=== PATIENT | male | born 1970 | race Caucasian/White ===

== ENCOUNTER 2018-10-16 22:37 | Emergency (ER) | payer OTHER, SELFPAY ==
[2018-10-16 22:42] VITALS: BP 135/92; PULSE 81; RESP 20; TEMP 36.9; O2SAT 98
[2018-10-16] MEDS: CLINDAMYCIN 150 MG CAPSULE 300 MG PO (23:23)
[2018-10-16] MEDS: DEXAMETHASONE 10 MG/ML VIAL PO (23:23)
[2018-10-16] MEDS: KETOROLAC 60 MG/2 ML VIAL IM (23:23)
[2018-10-16 23:56] VITALS: PULSE 87; RESP 18; O2SAT 96
--- NOTE | 2018-10-17 04:52 | ED_ITS ---
HPI - Dental/Oral General Chief complaint: Dental/Oral Stated complaint: JAW PAIN Time Seen by Provider: 10/16/18 22:45 Source: patient and family Mode of arrival: ambulatory Limitations: no limitations History of Present Illness HPI Narrative: 48-year-old male nonsmoker with minimal medical problems presents with the chief complaint of some right-sided jaw pain and a swollen tender spot on the right side of his neck. He denies any injury nor fever or chills. He has a bad tooth in his right lower jaw but denies any drainage or swelling inside his mouth. He denies any chest pain or shortness of breath. He has had no fever or chills. He is not dizzy or weak or lightheaded. He denies any difficulty in swallowing. He denies any trouble breathing. He has had no drooling and is otherwise well and free of complaints MD Complaint: tooth pain 1. Onset (ago): hour(s) Duration: constant Relieving factors: nothing Exacerbating factors: nothing Context: history of dental caries Treatment prior to arrival: none Related Data Previous Rx's Medication Instructions Recorded oxycodone 5 mg PO Q4HP PRN #90 tab 11/25/16 clindamycin HCl 300 mg PO Q6H 7 Days #28 cap 10/16/18 Allergies Allergy/AdvReac Type Severity Reaction Status Date / Time No Known Drug Allergies Allergy Verified 10/16/18 22:43 Review of Systems Constitutional Denies chills, Denies fever(s), Denies lethargy and Denies weakness Eyes Denies change in vision, Denies eye discharge, Denies irritation and Denies loss of vision ENT Ears, Nose, Mouth, and Throat: Denies change in voice, Reports dental pain, Reports neck pain and Denies sore throat Cardiovascular Denies chest pain, Denies irregular heart rhythm, Denies lightheadedness, Denies palpitations, Denies dyspnea, Denies dyspnea on exertion and Denies orthopnea Respiratory Denies cough, Denies dyspnea, Denies dyspnea on exertion and Denies wheezing Gastrointestinal Gastrointestinal: Denies abdominal pain, Denies change in bowel habits, Denies diarrhea, Denies nausea and Denies vomiting Genitourinary Denies hematuria, Denies flank pain, Denies urinary incontinence and Denies urinary urgency Musculoskeletal Reports neck pain Integumentary/Breasts Denies pruritus, Denies erythema, Denies rash and Denies wounds Neurologic Denies confusion, Denies loss of vision and Denies weakness Psychiatric Denies anxiety, Denies confusion, Denies depression, Denies homicidal ideation and Denies suicidal ideation Endocrine Denies palpitations Hematologic/Lymphatic Denies easy bruising Allergic/Immunologic Denies wheezing PFSH Social History Smoking Status: Never smoker Social History Smoking Status: Never smoker Exam Narrative Exam Narrative: GENERAL: 48-year-old male appears stated age, no obvious distress HEAD: Atraumatic. Normocephalic. No temporal or scalp tenderness. EYES: Pupils equal round and reactive. Extraocular motions intact. No scleral icterus. No injection or drainage. ENT: Mild R lower jaw swelling, minimal tenderness. Nose without bleeding, purulent drainage or septal hematoma. Throat without erythema, tonsillar hypertrophy or exudate. Uvula midline. Airway patent. NECK: Trachea midline. No JVD or lymphadenopathy. Two small erythematous tender indurated lesions on R side of neck. Freely moveable, no significant swelling. No abscess. CARDIOVASCULAR: Regular rate and rhythm without murmurs, gallops, or rubs. RESPIRATORY: Clear to auscultation. Breath sounds equal bilaterally. No wheezes, rales, or rhonchi. GASTROINTESTINAL: Abdomen soft, non-tender, nondistended. No hepato- splenomegaly, or palpable masses. No guarding. EXTREMITIES: No clubbing, cyanosis, or edema. No joint tenderness, effusion, or edema noted. BACK: Nontender without deformity or crepitance. No flank tenderness. NEURO: AOx3. . Initial Vital Signs Initial Vital Signs: Vital Signs Temperature 98.5 F 10/16/18 22:42 Pulse Rate 81 10/16/18 22:42 Respiratory Rate 20 10/16/18 22:42 Blood Pressure 135/92 H 10/16/18 22:42 Pulse Oximetry 98 10/16/18 22:42 Course Orders Ordered: Discontinued Medications Clindamycin HCl (Cleocin) 300 mg PO NOW ONE Stop: 10/16/18 23:15 Last Admin: 10/16/18 23:23 Dose: 300 mg Dexamethasone (Decadron) 10 mg PO NOW ONE Stop: 10/16/18 23:15 Last Admin: 10/16/18 23:23 Dose: 10 mg Ketorolac Tromethamine (Toradol) 60 mg IM NOW ONE Stop: 10/16/18 23:15 Last Admin: 10/16/18 23:23 Dose: 60 mg Vital Signs - 8 hr 10/16/18 22:42 10/16/18 23:56 Temperature 98.5 F Pulse Rate 81 87 Respiratory Rate 20 18 Blood Pressure 135/92 H Pulse Oximetry 98 96 MDM - Dental/Oral MDM Narrative Medical decision making narrative: 48-year-old male otherwise healthy presents with some right-sided jaw tenderness, dental pain and the right lateral neck pain. There is very minimal swelling and minimal induration. Certainly no drainable abscess. Considerations include potential early dental abscess versus cellulitis. The more ominous diagnoses such is peritonsillar abscess, neck space infection considered but thought much less likely given lack of supporting the exam findings. Extensive return precautions given to patient and . Clindamycin chosen for appropriate coverage of both odontogenic and skin infections Discharge Plan Departure Patient Disposition: Home Clinical Impression: Cellulitis and abscess of face Discharge Date/Time: 10/16/18 23:57 Interventions: ED Discharge Assessment Last Done: 10/16/18 23:56 Instructions: DI for Cellulitis -- Adult Activity Restrictions/Additional Instructions: *You have been diagnosed with [ facial pain and swelling, likely due to early cellulitis or abscess, possibly dental ] *What to do: *Take medications as directed *Follow up with your primary care provider tomorrow as planned *Return to ER if you should have any new, worsening or concerning symptoms Prescriptions: New clindamycin HCl 300 mg capsule 300 mg PO Q6H 7 Days Qty: 28 RF: 0 No Action oxycodone 5 MG tablet 5 mg PO Q4HP PRNQty: 90 RF: 0
== END 2018-10-16 23:57 | disposition home or self-care (01) ==
PROVIDERS: Emergency Provider Emergency Medicine
DX: L03.211 Cellulitis of face (principal)
CPT/HCPCS: 96372; 99282; 99283; J1100; J1885

== ENCOUNTER → 2019-02-12 07:34 | Outpatient (CLI) | payer OTHER, SELFPAY ==
--- NOTE | 2019-02-12 | DI.MRI.S_ITS ---
PROCEDURE: MR TMJ WO CON INDICATIONS: JAW PAIN TECHNIQUE: Axial T1 spin echo, coronal and sagittal PD fast spin echo through the temporomandibular joints, in both the closed- and open-mouth positions. COMPARISON: None. FINDINGS: Image quality: Excellent. Right: Joint is normally aligned on closed and open-mouth positioning. Meniscus demonstrates normal location and morphology. No definite anterior displacement of the posterior band of the meniscus is seen with open-mouth pulse sequences . No bony erosions or osteophytes. Left: Joint is normally aligned on closed and open-mouth positioning. Meniscus demonstrates normal location and morphology. No definite anterior displacement of the posterior band of the meniscus is seen with open-mouth pulse sequences. No bony erosions or osteophytes. Incidentally noted bilateral maxillary sinus mucous retention cysts or polyps. IMPRESSION: Incidentally noted mild bilateral maxillary sinus disease, otherwise normal examination as above. Dictated by: Amauri Delong M.D. on 02/12/2019 at 11:25 Approved by: Amauri Delong M.D. on 02/12/2019 at 11:34
== END ==
PROVIDERS: Visit Provider Dentist Oral and Maxillofacial Surgery
DX: R68.84 Jaw pain (principal); J32.0 Chronic maxillary sinusitis
CPT/HCPCS: 70336

== ENCOUNTER → 2024-09-08 06:29 | Outpatient (CLI) | payer OTHER, SELFPAY ==
--- NOTE | 2024-09-08 06:32 | DI.ECHO.S_ITS ---
[facility] : : [address] : [place] : : [id number] : : Phone: [phone] Echocardiogram Report + + :Name: ASUNCION TRINH Study Date: 09/08/2024 Height: 70 in : :Hospital ReadingLocation: Weight: 245 lb : : Gender: Male BSA: 2.3 m2 : :: 1970 Age: 54 yrs BP: 143/101 mmHg: :Reason For Study: ISCHEMIC HEART DISEASE : :Ordering Physician: ALMA, : :LADARIUS Performed By: Amadou Curtis : :Referring: LADARIUS MARQUEZ : + + Interpretation Summary The ejection fraction is estimated to be 55-60%. Diastolic parameters suggest probable normal left ventricular diastolic function and normal filling pressures. The right ventricular systolic function is normal. The right ventricular systolic pressure is estimated to be at least 33 mmHg based on an estimated right atrial pressure of 3 mm Hg. No significant valvular abnormality. Procedure: A two-dimensional transthoracic echocardiogram with color flow and Doppler was performed. The study quality was technically good. There is no prior echocardiogram noted for this patient. The patient was in normal sinus rhythm during the exam. Left Ventricle: The left ventricle is normal in size. There is normal left ventricular wall thickness. Proximal septal thickening is noted. There is no ventricular septal defect visualized. The ejection fraction is estimated to be 55-60%. There are no focal wall motion abnormalities. Diastolic parameters suggest probable normal left ventricular diastolic function and normal filling pressures. Right Ventricle: The right ventricle is mildly dilated. The right ventricular systolic function is normal. Atria: The left atrial size is normal. Right atrial size is normal. There is no Doppler evidence for an atrial septal defect. Mitral Valve: The mitral valve leaflets appear normal. There is no evidence of stenosis, fluttering, or prolapse. There is trace mitral regurgitation. Aortic Valve: The aortic valve is trileaflet. The aortic valve is mildly calcified. The aortic valve opens well. There is no aortic valve stenosis. No aortic regurgitation is present. Tricuspid Valve: The tricuspid valve leaflets are thin and pliable. There is mild tricuspid regurgitation. The right ventricular systolic pressure is estimated to be at least 33 mmHg based on an estimated right atrial pressure of 3 mm Hg. Pulmonic Valve: The pulmonic valve leaflets are thin and pliable; valve motion is normal. There is no pulmonic valvular regurgitation. Great Vessels: The aortic root is normal size. The dimensions of the ascending aorta are normal. The pulmonary artery is normal size. The IVC is of normal diameter and collapses greater than 50% with a sniff. This suggests a low right atrial pressure of 3 mm Hg. Pericardium/ Pleura There is no pericardial effusion. There is no pleural effusion. MMode/2D Measurements & Calculations LVIDd: 4.5 cm LVOT diam: 2.2 cm LVIDs: 3.1 cm Ao root diam: 3.5 cm FS: 31.9 % asc Aorta Diam: 3.5 cm EPSS: 0.28 cm Ao Arch Diam (Prox Trans): 2.1 cm IVSd: 0.77 cm LVPWd: 0.85 cm LV alaniz. diameter/BSA (cm/m^2): 2.0 LV sys. diameter/BSA (cm/m^2): 1.3 LA A2 area: 15.9 cm2 RA long axis: 5.0 cm LA A4 area: 14.3 cm2 RA area: 16.9 cm2 LA length (vol): 5.7 cm RA vol: 48.8 ml LA vol: 33.6 ml RA : 21.4 ml/m2 LA vol index: 14.8 ml/m2 IVC diam: 1.3 cm RVD1 (basal): 4.3 cm RVD2 (mid): 3.3 cm TAPSE: 2.1 cm Doppler Measurements & Calculations Ao V2 max: 112.8 cm/sec LVOT Max Yoni: 87.0 cm/sec Ao V2 mean: 78.5 cm/sec LV V1 max P.0 mmHg Ao max P.1 mmHg LV V1 VTI: 17.8 cm Ao mean P.7 mmHg ENOCH(I,D): 2.9 cm2 Ao V2 VTI: 22.7 cm ENOCH(V,D): 2.9 cm2 sev ratio: 0.79 ENOCH indexed to BSA (cm^2/m^2): 1.3 MV E max yoni: 68.5 cm/sec TR max yoni: 273.0 cm/sec MV A max yoni: 47.5 cm/sec TR max P.8 mmHg MV E/A: 1.4 PA V2 max: 52.9 cm/sec Med Peak E' Yoni: 6.5 cm/sec PA V2 mean: 32.8 cm/sec E/E' med: 10.5 PA mean P.50 mmHg Lat Peak E' Yoni: 10.7 cm/sec PA pr(Accel): 12.2 mmHg E/E' lat: 6.4 E/e' average: 8.5 MV dec time: 0.16 sec [facility] 66.2 ml Reading Physician:03:11 PM
--- NOTE | 2024-09-08 06:35 | EKG_ITS ---
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
--- NOTE | 2024-09-08 06:36 | DI.RAD.S_ITS ---
PROCEDURE: XR NASAL BONES MIN 3V INDICATIONS: NASAL FRACTURE TECHNIQUE: 3 views of the nasal bones acquired. COMPARISON: None. FINDINGS: Bones: No fractures or dislocations. Nasal septum is midline. Normal nasociliary nerve grooves are noted. Soft tissues: No suspicious soft tissue calcifications. IMPRESSION: No definitively visualized displaced fracture. If concern persists, CT is recommended. Dictated by: Nataliia Ambrose M.D. on 09/08/2024 at 14:38 Approved by: Nataliia Ambrose M.D. on 09/08/2024 at 14:41
[2024-09-08 08:20] LABS: Appearance Urine UA CLEAR; Bilirubin Urine UA NEGATIVE (NEGATIVE); Color Urine UA YELLOW; Glucose Urine UA NEGATIVE (Negative); Ketones Urine UA NEGATIVE (NEGATIVE); Leukocyte Esterase Urine UA NEGATIVE (NEGATIVE); Nitrite Urine UA NEGATIVE (Negative); Occult Blood Urine UA NEGATIVE (Negative); Protein Urine UA NEGATIVE (Negative); Specific Gravity Urine UA <=1.005 (1.000-1.035); Urobilinogen Urine UA 0.2 E.U./dL (0.2); pH Urine UA 5.5 (4.5-8.0)
[2024-09-08 08:31] LABS: Urine Volume 10mL (spun)
[2024-09-08 08:33] LABS: Bacteria Urine None Seen; RBC Urine None Seen (0-5/HPF); Squamous Epithelial Cell Urine None Seen (0-5/HPF); WBC Urine None Seen (0-5/HPF)
[2024-09-08 08:43] LABS: Alanine Aminotransferase 66 IU/L (<50); Albumin 4.9 g/dL (3.5-5.0); Albumin Globulin Ratio 1.6 (1.0-2.8); Alkaline Phosphatase 56 U/L (38-126); Aspartate Aminotransferase 47 IU/L (17-59); BUN Creatinine Ratio 17.1 (6-22); Blood Urea Nitrogen 19 mg/dL (9-20); Calcium 9.4 mg/dL (8.4-10.2); Carbon Dioxide 24 mmol/L (22-32); Chloride 103 mmol/L (98-107); Estimated Glomerular Filt Rate > 60 mL/min (>60); Glucose 101 mg/dL (70-100); HEMOLYSIS < 15 (0-50); Potassium 4.5 mmol/L (3.4-5.1); Sodium 137 mmol/L (137-145); Total Protein 7.9 g/dL (6.3-8.2)
== END ==
PROVIDERS: PCP Family Medicine; Referring Provider Chiropractor; Visit Provider Chiropractor
DX: E11.9 Type 2 diabetes mellitus without complications (principal); I25.9 Chronic ischemic heart disease, unspecified; S09.92XA Unspecified injury of nose, initial encounter; I07.1 Rheumatic tricuspid insufficiency; X58.XXXA Exposure to other specified factors, initial encounter
CPT/HCPCS: 36415; 70160; 80053; 81001; 93005; 93306

== ENCOUNTER → 2024-11-17 10:48 | Outpatient (CLI) | payer OTHER, SELFPAY ==
--- NOTE | 2024-11-17 10:51 | DI.RAD.S_ITS ---
PROCEDURE: XR CHEST 2V INDICATIONS: SINUSITIS TECHNIQUE: 2 views of the chest were acquired. COMPARISON: None. FINDINGS: Surgical changes and devices: None. Lungs and pleura: Lungs are clear. No pleural effusions or pneumothorax. Mediastinum: Mediastinal contours are normal. Heart size is normal. Bones and chest wall: No suspicious bony abnormalities. Soft tissues appear unremarkable. IMPRESSION: No acute cardiopulmonary abnormality is seen. Approved by: Manfred Subramanian M.D. on 11/17/2024 at 17:27
== END ==
PROVIDERS: PCP Family Medicine; Referring Provider Family Medicine; Visit Provider Chiropractor
DX: J01.90 Acute sinusitis, unspecified (principal)
CPT/HCPCS: 71046; 94060

== ENCOUNTER → 2024-11-21 09:19 | Outpatient (CLI) | payer OTHER, SELFPAY ==
[2024-11-21 10:10] LABS: Add Manual Diff / Slide Review NO; Basophils Absolute Auto 100 /uL (0-100); Basophils Percent Auto 0.8 % (0-2); Eosinophils Absolute Auto 100 /uL (0-450); Eosinophils Percent Auto 2.3 % (2-4); Hematocrit 46.9 % (41-53); Hemoglobin 16.2 g/dL (13.5-17.5); Lymphocytes Absolute Auto 2800 /uL (1100-4500); Lymphocytes Percent Auto 46.4 % (25-40); Mean Corpuscular HGB Conc 34.6 % (30-36); Mean Corpuscular Hemoglobin 30.7 PG (26-34); Mean Corpuscular Volume 88.9 fL (80-100); Monocytes Absolute Auto 600 /uL (0-900); Neutrophils Absolute Auto 2500 /uL (1500-7000); Neutrophils Percent Auto 40.5 % (50-75); Platelet Count 229 X10^3/uL (150-400); Red Blood Cell Count 5.28 X10^6/uL (4.5-5.9); Red Cell Distribution Width 13.2 % (11.6-14.8); White Blood Cell Count 6.1 X10^3/uL (4.5-11.0)
[2024-11-21 10:44] LABS: Alanine Aminotransferase 66 IU/L (<50); Albumin 4.6 g/dL (3.5-5.0); Albumin Globulin Ratio 1.6 (1.0-2.8); Alkaline Phosphatase 56 U/L (38-126); Aspartate Aminotransferase 47 IU/L (17-59); BUN Creatinine Ratio 15.5 (6-22); Bilirubin Total 0.8 mg/dL (0.2-1.3); Blood Urea Nitrogen 16 mg/dL (9-20); Calcium 9.4 mg/dL (8.4-10.2); Carbon Dioxide 23 mmol/L (22-32); Chloride 107 mmol/L (98-107); Cholesterol 253 mg/dL (140-199); Estimated Glomerular Filt Rate > 60 mL/min (>60); Globulin 2.9 g/dL (1.7-4.1); Glucose 99 mg/dL (70-99); HDL Cholesterol 37 mg/dL (40-60); HEMOLYSIS < 15 (0-50); LDL Cholesterol Calculated 148 mg/dL (<100); Potassium 4.6 mmol/L (3.4-5.1); Sodium 139 mmol/L (137-145); Total Protein 7.5 g/dL (6.3-8.2); Triglycerides 342 mg/dL (35-150)
== END ==
LOC: LAB 09:20
PROVIDERS: PCP Family Medicine; Referring Provider Family Medicine; Visit Provider Family Medicine
DX: E78.5 Hyperlipidemia, unspecified (principal); E66.811 Obesity, class 1; G47.33 Obstructive sleep apnea (adult) (pediatric)
CPT/HCPCS: 36415; 80053; 80061; 85025

== ENCOUNTER → 2025-05-20 09:27 | Outpatient (CLI) | payer OTHER, SELFPAY | PROVIDERS: PCP Family Medicine; Visit Provider Physician Assistant Medical | DX: J02.9 Acute pharyngitis, unspecified (principal) | CPT/HCPCS: 87070 ==